=== PATIENT | male | born 1980 ===

== ENCOUNTER 2017-09-04 10:50 | Emergency (ER) | payer OTHER ==
[2017-09-04 11:02] VITALS: BP 107/73; PULSE 83; RESP 16; TEMP 98.7; O2SAT 100
[2017-09-04] MEDS ORDERED: Naproxen 500 MG TAB PO STA (11:23)
--- NOTE | 2017-09-04 11:26 | ED PDOC ---
HPI: Back Time Seen by Provider: 09/04/17 11:23 Chief Complaint (Nursing): Back Pain Chief Complaint (Provider): BACK PAIN History Per: Patient (37 Y/O MALE HERE WITH COUGHING X 4 DAYS, NOW NOTES LEFT SIDE BACK PAIN. DENIES ANY FEVERS/CHILLS. NON SMOKER. ) Past Medical History Reviewed: Historical Data, Nursing Documentation, Vital Signs Vital Signs: Last Vital Signs Temp 98.7 F 09/04/17 11:01 Pulse 83 09/04/17 11:01 Resp 16 09/04/17 11:01 BP 107/73 09/04/17 11:01 Pulse Ox 100 09/04/17 11:01 - Family History Family History: States: No Known Family Hx - Home Medications Home Medications: Ambulatory Orders Medication Instructions Recorded Azithromycin [Zithromax] 500 mg PO DAILY #3 tablet 09/04/17 Naproxen 375 mg PO Q8 PRN #21 tablet 09/04/17 Promethazine/Codeine 5 ml PO Q12 PRN #100 ml 09/04/17 [Codeine/Promethazine 10 MG/5 Ml-6.25 MG/5 Ml] - Allergies Allergies/Adverse Reactions: Allergies Allergy/AdvReac Type Severity Reaction Status Date / Time No Known Allergies Allergy Verified 09/04/17 11:01 Review of Systems ROS Statement: Except As Marked, All Systems Reviewed And Found Negative Respiratory: Positive for: Cough Musculoskeletal: Positive for: Back Pain Physical Exam - Reviewed Nursing Documentation Reviewed: Yes Vital Signs Reviewed: Yes - Physical Exam Appears: Positive for: Well, Non-toxic, No Acute Distress Head Exam: Positive for: ATRAUMATIC, NORMAL INSPECTION, NORMOCEPHALIC Skin: Positive for: Normal Color, Warm, DRY Eye Exam: Positive for: EOMI, Normal appearance, PERRL ENT: Positive for: Normal ENT Inspection Neck: Positive for: Normal, Painless ROM Cardiovascular/Chest: Positive for: Regular Rate, Rhythm Respiratory: Positive for: CNT, Normal Breath Sounds Gastrointestinal/Abdominal: Positive for: Normal Exam, Bowel Sounds, Soft Back: Positive for: Normal Inspection, Other (LOWER PARATHORACIC TENDERNESS.) Extremity: Positive for: Normal ROM Neurologic/Psych: Positive for: Alert, Oriented - ECG O2 Sat by Pulse Oximetry: 100 - Progress ED Course And Treament: NAPROXEN 500MG X 1 DOSE CXR: ? HAZINESS NOTED RIGHT MEDIAL LOBE Disposition - Clinical Impression Clinical Impression: Muscle strain, Cough, Pulmonary infiltrate - Patient ED Disposition Is Patient to be Admitted: No - Disposition Referrals: [facility] [place] [Outside] Disposition: Routine/Home Disposition Time: 12:22 Condition: FAIR Prescriptions: Azithromycin [Zithromax] 500 mg PO DAILY #3 tablet Naproxen 375 mg PO Q8 PRN #21 tablet PRN Reason: Pain, Moderate (4-7) Promethazine/Codeine [Codeine/Promethazine 10 MG/5 Ml-6.25 MG/5 Ml] 5 ml PO Q12 PRN #100 ml PRN Reason: Cough Instructions: Muscle Strain, Cough in Adults, Pneumonia in Adults Forms: [facility] ED School/Work Excuse, [facility] (Djiboutian) Print Language: PORTUGUESE
[2017-09-04] MEDS ORDERED: Naproxen 500 MG TAB PO ONE (11:41)
--- NOTE | 2017-09-04 12:57 | RAD ---
HISTORY: COUGH/BACK PAIN COMPARISON: No prior. TECHNIQUE: Chest PA and lateral FINDINGS: LUNGS: No active pulmonary disease. PLEURA: No significant pleural effusion identified. No pneumothorax apparent. CARDIOVASCULAR: Normal. OSSEOUS STRUCTURES: No significant abnormalities. VISUALIZED UPPER ABDOMEN: Normal. OTHER FINDINGS: None. IMPRESSION: No active disease.
== END 2017-09-04 12:42 | disposition home or self-care (01) ==
LOC: H.ER 10:50
DX: M54.9 Dorsalgia, unspecified (principal); R91.8 Other nonspecific abnormal finding of lung field